=== PATIENT | male | born 2005 | race African-American/Black ===

== ENCOUNTER 2025-01-02 12:33 | Outpatient (CLI) | payer BC, SELFPAY ==
--- NOTE | 2025-01-02 12:45 | USCV_ITS ---
Caitlin Spivey Age: 19 Gender: M : 2005 Exam Date: 01/02/2025 13:13 Ordering Phys: Mikie Conteh MD Technologist: IRENE Exam Location: [facility] – [place] Indication: RIGTH [employer] SWELLING HISTORY: Upper extremity edema-RIGHT PROCEDURES: Venous duplex imaging was performed in only the right upper extremity. The following venous structures were evaluated: internal jugular vein, subclavian vein, axillary vein, and brachial veins. In addition, the basilic vein, cephalic vein, radial vein, and ulnar vein. FINDINGS: Normal 2-D, color Doppler and phasicity noted in ther right upper extremity venous system extending from the right internal jugular vein through the main forearm. No thrombosis or occlusion noted. CONCLUSIONS No evidence for upper extremity deep venous thrombosis. Dr. Venecia Saldana DO (Electronically Signed) Final Date: 02 January 2025 15:09 S
== END 2025-01-02 12:34 | disposition home or self-care (01) ==
LOC: RAD 12:38
PROVIDERS: Visit Provider Family Medicine
DX: M79.89 Other specified soft tissue disorders (principal)
CPT/HCPCS: 93971